=== PATIENT | female | born 1995 | race Caucasian/White ===

== ENCOUNTER 2024-02-04 11:43 | Emergency (ER) | payer OTHER ==
[~2024-02-04] VITALS: Ht 162.6 cm; Wt 64.0 kg
[2024-02-04 11:49] VITALS: O2SAT 99
[2024-02-04] MEDS: ACETAMINOPHEN 325MG TABLET PO ONE (12:22)
[2024-02-04] MEDS: ONDANSETRON 4MG ODT PO ONE (12:22)
[2024-02-04 12:47] VITALS: BP 129/86; PULSE 73; RESP 20
[2024-02-04] MEDS: KETOROLAC 30MG/ML VIAL IM ONE (12:47)
[2024-02-04] MEDS ORDERED: NAPR-681 MT (12:59)
== END 2024-02-04 13:30 | disposition home or self-care (01) ==
LOC: ER 11:43
DX: M54.2 Cervicalgia (principal); R07.81 Pleurodynia
CPT/HCPCS: 81025; 71045; 96372; 99283; Q0162; J1885; Z7610